=== PATIENT | male | born 1970 | race Caucasian/White ===

== ENCOUNTER 2025-03-12 04:00 | Emergency (ER) | payer BC ==
[2025-03-12] MEDS: Cyclobenzaprine 10 MG Tab PO ONE (04:37)
[2025-03-12] MEDS: Ketorolac 30 MG/ML SDV IM ONE (04:38)
[2025-03-12] MEDS: predniSONE 20 MG Tab PO ONE (05:46)
== END 2025-03-12 05:52 | disposition home or self-care (01) ==
LOC: FB.ED 04:00
DX: M50.30 Other cervical disc degeneration, unspecified cervical region (principal)
CPT/HCPCS: 96372; 99283; A9270-GY; J1885; J7512

== ENCOUNTER 2025-07-03 17:34 | Emergency (ER) | payer BC ==
[2025-07-03] MEDS ORDERED: Acetaminophen/oxyCODONE 325-5 MG Tab PO ONE (17:35)
[2025-07-03] MEDS ORDERED: Sodium Chloride 0.9% 10 ML Syringe FLUSH PRN (17:51)
[2025-07-03] MEDS: fentaNYL 100 MCG/2 ML SDV IVPUSH ONE (18:35)
[2025-07-03] MEDS: Silver Sulfadiazine 1% Crm 50 GM Tube TOP ONE (19:19)
[2025-07-03] MEDS: Bacitracin Oint 1 GM U/D Packet TOP ONE (20:30)
== END 2025-07-03 21:56 | disposition home or self-care (01) ==
LOC: FB.ED 17:34
DX: T22.211A Burn of second degree of right forearm, initial encounter (principal); T20.20XA Burn of second degree of head, face, and neck, unspecified site, initial encounter; T20.25XA Burn of second degree of scalp [any part], initial encounter; T20.212A Burn of second degree of left ear [any part, except ear drum], initial encounter; T20.211A Burn of second degree of right ear [any part, except ear drum], initial encounter; W40.1XXA Explosion of explosive gases, initial encounter; Y93.89 Activity, other specified; Z79.899 Other long term (current) drug therapy
CPT/HCPCS: 16020; 96374; 99283; A9270; J3010; J7030; 99284